=== PATIENT | female | born 1945 | race Caucasian/White ===

== ENCOUNTER → 2018-01-21 | Outpatient (CLI) | payer MEDICARE, OTHER ==
[~2018-01-21] MED LIST: AMLO5; AZOR; CHOL10002 PO; CLIN150 PO; DHEA PO; FURO40; GABA300 PO; GABA300T24; Hair, Skin & N1 EACH; Hydrocodone-Ap1 EA23 PO; LISI20; PROBIOTIC; ROSU10TA; ROSU10TA PO; TRAM50; Vitamin B Comple1 EA
== END | disposition home or self-care (01) ==
LOC: LAB EV 12:10 → LAB SHORT 12:10
DX: N39.0 Urinary tract infection, site not specified (principal)
CPT/HCPCS: 87077; 87086; 87186

== ENCOUNTER → 2018-07-16 | Outpatient (CLI) | payer MEDICARE, OTHER | LOC: LAB SHORT 13:16 → LAB EV 13:16 | DX: R30.0 Dysuria (principal) | CPT/HCPCS: 87077; 87086; 87186 ==

== ENCOUNTER → 2018-10-14 | Outpatient (CLI) | payer MEDICARE, OTHER | END | disposition home or self-care (01) | LOC: LAB SHORT 10:48 → LAB EV 10:48 | DX: N39.0 Urinary tract infection, site not specified (principal) | CPT/HCPCS: 87077; 87086; 87186 ==

== ENCOUNTER → 2018-11-05 | Outpatient (CLI) | payer MEDICARE, OTHER | END | disposition home or self-care (01) | LOC: LAB EV 11:30 → LAB SHORT 11:30 | DX: N39.0 Urinary tract infection, site not specified (principal) | CPT/HCPCS: 87086 ==

== ENCOUNTER → 2019-04-09 | Outpatient (CLI) | payer MEDICARE, OTHER | END | disposition home or self-care (01) | LOC: LAB SHORT 14:27 → LAB EV 14:27 | DX: N39.0 Urinary tract infection, site not specified (principal) | CPT/HCPCS: 87086 ==

== ENCOUNTER → 2020-05-08 | Outpatient (CLI) | payer MEDICARE, OTHER ==
[~2020-05-08] MED LIST changes: -AMLO5; +AMLO5 PO; +APPLE CIDER VINEGAR PO; +ASCO500 PO; +COQ1050 MG PO; +Cranberry300 MG PO; +ENOX40I SC; +FISH OIL PO; +GLIP10ER PO; -Hair, Skin & N1 EACH; +Hair, Skin & N1 EACH PO; -LISI20; +LISI20 PO; +OXYC5 PO; +PROM25 PO; -ROSU10TA; +SULTRIDS PO; -TRAM50; +TRAM50 PO; +TURMERIC ROOT5000 GM PO; -Vitamin B Comple1 EA; +Vitamin B Comple1 EA PO
== END | disposition home or self-care (01) ==
LOC: LAB EV 08:35
DX: N39.0 Urinary tract infection, site not specified (principal)
CPT/HCPCS: 87077; 87086; 87186

== ENCOUNTER 2020-07-18 09:59 | Day surgery (SDC) | payer MEDICARE, OTHER ==
[~2020-07-18] VITALS: Ht 162.6 cm; Wt 86.7 kg
[~2020-07-18 09:59] MED LIST changes: -ENOX40I SC; -GLIP10ER PO; -OXYC5 PO; -PROM25 PO; -SULTRIDS PO
[2020-07-18] MEDS ORDERED: GLIP10ER PO (11:02)
--- NOTE | 2020-07-18 16:39 | NUR ---
Patient arrived to room 215. Post op VS in progress and WNL. Dressing to left knee CDI. Cryotherapy in place. Patient denies pain at this time. Tolerating sips of clear liquid. Call light within patient reach.
[2020-07-19 04:42] LABS: BASOPHILS ABSOLUTE AUTO 0.02 K/mm3 (0.00-0.23); BASOPHILS PERCENT AUTO 0 % (0-2); EOSINOPHILS ABSOLUTE AUTO 0.31 K/mm3 (0.00-0.68); EOSINOPHILS PERCENT AUTO 4 % (0-6); Hematocrit 32.4 % (33.0-51.0); Hemoglobin 10.5 g/dL (11.5-16.0); IMMATURE GRAN ABSOLUTE AUTO 0.02 K/mm3 (0.00-0.10); IMMATURE GRAN PERCENT AUTO 0 % (0-1); LYMPHOCYTES ABSOLUTE AUTO 1.48 K/mm3 (0.84-5.20); LYMPHOCYTES PERCENT AUTO 18 % (21-46); MONOCYTES ABSOLUTE AUTO 0.73 K/mm3 (0.16-1.47); MONOCYTES PERCENT AUTO 9 % (4-13); Mean Corpuscular HGB 29.3 pg (26.0-34.0); Mean Corpuscular HGB Conc 32.4 g/dL (31.5-36.5); Mean Corpuscular Volume 91 fL (80-100); Mean Platelet Volume 9.6 fL (9.1-12.4); NEUTROPHILS ABSOLUTE AUTO 5.53 K/mm3 (1.96-9.15); NEUTROPHILS PERCENT AUTO 69 % (41-73); Platelet Count 222 K/mm3 (150-400); RDW Coefficient Variation 12.5 % (11.7-14.2); RDW Standard Deviation 41.1 fL (35.1-46.3); Red Blood Cell Count 3.58 M/mm3 (3.80-5.20); White Blood Cell Count 8.09 K/mm3 (4.00-11.30)
--- NOTE | 2020-07-19 04:52 | NUR ---
SHIFT SUMMARY PT IS A/O X4. SBA WITH FWW AND GAIT BELT. HAS BEEN UP TO BATHROOM SEVERAL TIMES. AMBULATING WITH MINIMAL ASSIST. TOLERATING PO INTAKE AND VOIDING. POLAR PACK IN PLACE OVERNIGHT. PAIN MANAGED WITH TYLENOL/TORADOL AND OXY PER ORDERS. PT RESTING IN BED AT THIS TIME WITH CALL LIGHT IN PLACE.
[2020-07-19 05:01] LABS: Calcium, Blood 8.3 mg/dL (8.5-10.1); Creatinine, Blood 1.6 mg/dL (0.40-1.00); Magnesium, Blood 1.7 mg/dL (1.6-2.4); Potassium, Blood 4.9 mmol/L (3.5-5.5)
[2020-07-19] MEDS ORDERED: OXYC5 PO (09:23)
[2020-07-19] MEDS ORDERED: ENOX40I SC (09:24)
[2020-07-19] MEDS ORDERED: SULTRIDS PO (09:25)
[2020-07-19] MEDS ORDERED: PROM25 PO (09:25)
--- NOTE | 2020-07-19 15:22 | NUR ---
PATIENT DISCHARGED HOME. IV OUT. DISCHARGE INSTRUCTIONS GIVEN, EXPLAINED AND SIGNED. PATIENT/SPOUSE DENIED QUESTIONS OR CONCERNS AT DISCHARGE. PATIENT TO FOLLOW UP WITH ORTHO SCHEDULED. PATIENT LEFT HOSPITAL VIA WHEELCHAIR ESCORT.
== END 2020-07-19 15:13 | disposition home or self-care (01) ==
LOC: ORSCMMR 09:59 → ORD 14:00 → SURS 16:37 → ORSCMMR 07-19 15:13 → ORD 07-25 11:00
PROVIDERS: Orthopaedic Surgery
PROC: 0SRD0J9 Replacement of Left Knee Joint with Synthetic Substitute, Cemented, Open Approach (ICD-10-PCS; principal; 2020-07-18 14:00)
PROC: 8E0YXBZ Computer Assisted Procedure of Lower Extremity (ICD-10-PCS; principal; 2020-07-18 14:00)
DX: M17.12 Unilateral primary osteoarthritis, left knee (principal); N18.9 Chronic kidney disease, unspecified; E11.22 Type 2 diabetes mellitus with diabetic chronic kidney disease; I12.9 Hypertensive chronic kidney disease with stage 1 through stage 4 chronic kidney disease, or unspecified chronic kidney disease; Z87.891 Personal history of nicotine dependence; E78.5 Hyperlipidemia, unspecified; Z79.84 Long term (current) use of oral hypoglycemic drugs; Z79.899 Other long term (current) drug therapy
CPT/HCPCS: 36415; 73560-LT; 80048; 82947; 83735; 85025; 88300; 97110; 97116; 97162; A9270; C1713; C1776; J0171; J0690; J0735; J1650; J1815; J1885; J2250; J2405; J2704; J2795; J3370; J7120

== ENCOUNTER → 2021-08-27 | Outpatient (CLI) | payer MEDICARE, OTHER ==
[~2021-08-27] MED LIST changes: +ENOX40I SC; +GLIP10ER PO; +OXYC5 PO; +PROM25 PO; +SULTRIDS PO
== END | disposition home or self-care (01) ==
LOC: LAB 13:30 → LAB SHORT 13:30
DX: N39.0 Urinary tract infection, site not specified (principal)
CPT/HCPCS: 87077; 87086; 87186

== ENCOUNTER 2023-04-28 07:00 | Day surgery (SDC) | payer MEDICARE, OTHER ==
[~2023-04-28] VITALS: Ht 162.6 cm; Wt 82.4 kg
[2023-04-28] VITALS (16 sets, daily range): BP systolic 114–161; BP diastolic 68–115
[~2023-04-28 07:00] MED LIST changes: +ATOR10 PO
[2023-04-28] MEDS ORDERED: NEURONTIN300 MG PO (07:31)
[2023-04-28] MEDS ORDERED: AMLO5 PO (07:32)
[2023-04-28] MEDS ORDERED: CALCITRIOL0.25 MC4 PO (07:33)
[2023-04-28] MEDS ORDERED: BASAGLAR K100 UNIT/3 SC (07:33)
[2023-04-28] MEDS ORDERED: NYSTRIT TOP (07:34)
--- NOTE | 2023-04-28 07:48 | NUR ---
History, Chart, Medications and Allergies reviewed before start of procedure. Ambulatory in Day Surgery. Pre-Op teaching done. Pt verbalizes understanding. Patient confirms NPO status and agrees with scheduled surgery. Patient states colon prep results light yellow without sediment. Lungs clear T/O to Auscultation. Patient States Post-Procedure ride home has been arranged.
--- NOTE | 2023-04-28 08:02 | NUR ---
04/28/23 0802 Marcello Alfred HISTORY, CHART, MEDICATIONS AND ALLERGIES REVIEWED BEFORE START OF PROCEDURE. PATIENT CONFIRMS NPO STATUS AND AGREES WITH SCHEDULED PROCEDURE. 3-LEAD EKG REVIEWED WITH PHYSICIAN PRIOR TO START OF PROCEDURE. MONITOR INTACT WITH CONTINUOUS PULSE OXIMETRY,CAPNOGRAPHY, 3-LEAD EKG, INTERMITTENT BP. SUPPLEMENTAL O2 TO BE TITRATED THROUGHOUT PROCEDURE TO MAINTAIN O2 SATURATION ABOVE 90%. PATIENT DETERMINED TO BE ASA APPROPRIATE FOR PROPOFOL SEDATION PRIOR TO START OF PROCEDURE BY DR. HERRERA.
--- NOTE | 2023-04-28 08:54 | NUR ---
Patient up to Ambulate independently. Gait steady. ABLE TO TRANSFER TO W/C INDEPENDENTLY. Discharge instructions reviewed with patient. Patient verbalizes understanding. Copy given to patient to take home. Lungs clear T/O to Auscultation. Discharged via wheelchair to private car for ride home WITH .
== END 2023-04-28 08:56 | disposition home or self-care (01) ==
LOC: ORSCMMR 07:00 → ORD 08:00 → ORSCMMR 08:56
DX: Z12.11 Encounter for screening for malignant neoplasm of colon (principal); Z86.010 Personal history of colon polyps; D12.3 Benign neoplasm of transverse colon; D12.4 Benign neoplasm of descending colon; K64.8 Other hemorrhoids; E11.9 Type 2 diabetes mellitus without complications; I10 Essential (primary) hypertension; E78.00 Pure hypercholesterolemia, unspecified; Z79.4 Long term (current) use of insulin; Z79.899 Other long term (current) drug therapy
CPT/HCPCS: 82947; 88305; J2704; J7120